=== PATIENT | female | born 1995 | race Caucasian/White ===

== ENCOUNTER 2018-01-22 12:05 | Inpatient (IN) | payer MEDICAID ==
[2018-01-22 12:40] LABS: ADD MAN DIFF? NO
[2018-01-22 12:44] LABS: WHITE BLOOD COUNT 8.1 10^3/ul (4.8-10.8)
[2018-01-22 12:44] LABS: BASOPHILS % 0.2 % (0.0-2.0); EOSINOPHILS # 0.1 10^3/ul (0.0-0.5); EOSINOPHILS % 1.1 % (0.0-7.0); HEMATOCRIT 37.6 % (37.0-47.0); HEMOGLOBIN 12.5 g/dl (12.0-16.0); LYMPHOCYTES # 2.3 10^3/ul (0.8-2.9); LYMPHOCYTES % 28.6 % (15.0-51.0); MEAN CORPUSCULAR HEMOGLOBIN 30.1 pg (29.0-33.0); MEAN CORPUSCULAR HGB CONC 33.2 g/dl (32.0-37.0); MEAN CORPUSCULAR VOLUME 90.6 fl (82.0-101.0); MEAN PLATELET VOLUME 10.4 fl (7.4-10.4); MONOCYTE # 0.7 10^3/ul (0.3-0.9); MONOCYTES % 8.6 % (0.0-11.0); NEUTROPHIL # 4.9 10^3/ul (1.6-7.5); NEUTROPHILS % 60.8 % (39.0-77.0); PLATELET COUNT 248 10^3/UL (140-415); RED BLOOD COUNT 4.15 10^6/ul (4.20-5.40); RED CELL DISTRIBUTION WIDTH 15.5 % (11.5-14.5)
[2018-01-22] MEDS ORDERED: LACTATED RINGER'S 1,000 ML IV (13:00)
[2018-01-22 13:03] LABS: ALANINE AMINOTRANSFERASE 215 IU/L (13-69); ALBUMIN 3.5 g/dl (3.3-4.9); ALKALINE PHOSPHATASE 245 IU/L (42-121); ANION GAP 14 (8-16); ASPARTATE AMINO TRANSFERASE 86 IU/L (15-46); BILIRUBIN,INDIRECT 0.1 mg/dl (0-1.1); BILIRUBIN,TOTAL 0.1 mg/dl (0.2-1.3); BLOOD UREA NITROGEN 4 mg/dl (7-20); CALCIUM 9.3 mg/dl (8.4-10.2); CARBON DIOXIDE 25 mmol/L (21-31); CHLORIDE 106 mmol/L (97-110); CREATININE 0.54 mg/dl (0.44-1.00); GLUCOSE 71 mg/dl (70-220); POTASSIUM 3.9 mmol/L (3.5-5.1); SODIUM 141 mmol/L (135-144)
[2018-01-22] MEDS ORDERED: METHYLERGONOVINE 0.2 MG INJ IM (16:30)
[2018-01-22] MEDS ORDERED: LIDOCAINE 1% (MPF) 30 ML INJ INJ (16:30)
[2018-01-22] MEDS ORDERED: MISOPROSTOL 200 MCG TAB PR (16:30)
[2018-01-22] MEDS ORDERED: OXYTOCIN 30 UNITS/LR 500 ML IV ×3 (16:30)
[2018-01-22] MEDS ORDERED: CARBOPROST 250 MCG INJ IM (16:30)
[2018-01-22] MEDS ORDERED: BUTORPHANOL 2 MG INJ IV (16:30)
[2018-01-22] MEDS ORDERED: IBUPROFEN 600 MG TAB PO (16:30)
[2018-01-22] MEDS: LACTATED RINGER'S 1,000 ML IV (18:02)
[2018-01-22] MEDS: AMPICILLIN 2 GM/NS (PMX) 100 ML IV (18:11)
[2018-01-22] MEDS: BETAMET NA PHOS/AC(6 MG/ML) 5ML INJ IM (18:12)
[2018-01-22 18:18] LABS: ADD MAN DIFF? NO
[2018-01-22 18:21] LABS: WHITE BLOOD COUNT 9.7 10^3/ul (4.8-10.8)
[2018-01-22 18:21] LABS: BASOPHILS % 0.3 % (0.0-2.0); EOSINOPHILS % 0.4 % (0.0-7.0); HEMATOCRIT 38.5 % (37.0-47.0); LYMPHOCYTES # 2.6 10^3/ul (0.8-2.9); LYMPHOCYTES % 26.8 % (15.0-51.0); MEAN CORPUSCULAR HEMOGLOBIN 30.2 pg (29.0-33.0); MEAN CORPUSCULAR HGB CONC 33.8 g/dl (32.0-37.0); MEAN CORPUSCULAR VOLUME 89.5 fl (82.0-101.0); MEAN PLATELET VOLUME 10.2 fl (7.4-10.4); MONOCYTE # 0.6 10^3/ul (0.3-0.9); MONOCYTES % 6.1 % (0.0-11.0); NEUTROPHIL # 6.4 10^3/ul (1.6-7.5); PLATELET COUNT 238 10^3/UL (140-415); RED CELL DISTRIBUTION WIDTH 15.4 % (11.5-14.5)
[2018-01-22 18:39] LABS: INR 0.97
[2018-01-22 18:40] LABS: PARTIAL THROMBOPLASTIN TIME 28.1 Sec (25.0-35.0)
[2018-01-22 19:14] LABS: HEPATITIS B SURFACE ANTIGEN NEGATIVE (NEGATIVE)
[2018-01-22] MEDS: URSODIOL 300 MG CAP PO (20:55)
[2018-01-22] MEDS: AMPICILLIN 1 GM/NS (PMX) 50 ML IV (22:09)
[2018-01-23 02:30] LABS: AMPHETAMINE/METHAMPHETAMINE Negative (NEGATIVE); BARBITURATES Negative (NEGATIVE); BENZODIAZEPINES Negative (NEGATIVE); CANNABINOIDS Negative (NEGATIVE); COCAINE Negative (NEGATIVE); OPIATES Negative (NEGATIVE)
[2018-01-23] MEDS: AMPICILLIN 1 GM/NS (PMX) 50 ML IV ×6 (03:22→18:46)
[2018-01-23] MEDS: LACTATED RINGER'S 1,000 ML IV ×3 (05:29→17:31)
[2018-01-23] MEDS: FERROUS SULFATE (EC) 325 MG TAB PO (09:30)
[2018-01-23] MEDS: URSODIOL 300 MG CAP PO ×2 (09:30→15:35)
[2018-01-23] MEDS: ACETAMINOPHEN 325 MG TAB PO (09:31)
[2018-01-23] MEDS: PRENATAL VITAMIN PO (09:48)
[2018-01-23 14:53] LABS: RAPID PLASMA REAGIN NONREACTIVE (NR)
[2018-01-23] MEDS: BETAMET NA PHOS/AC(6 MG/ML) 5ML INJ IM (17:31)
== END 2018-01-23 20:55 | disposition home or self-care (01) | DRG 781 ==
LOC: OBT 12:05 → L-D 12:07 → OBT 14:47 → L-D 14:40
DX: O26.613 Liver and biliary tract disorders in pregnancy, third trimester (principal); K83.1 Obstruction of bile duct; Z3A.33 33 weeks gestation of pregnancy
CPT/HCPCS: 36415; 76815; 76818; 80053; 80307; 83789; 85025; 85610; 85730; 86592; 86900; 86901; 87340; 93970

== ENCOUNTER 2018-01-26 15:23 | Outpatient (CLI) | payer MEDICAID | END 2018-01-26 17:01 | disposition home or self-care (01) | LOC: OBT 15:23 → L-D 15:25 → OBT 17:01 | DX: O26.893 Other specified pregnancy related conditions, third trimester (principal); L29.9 Pruritus, unspecified; Z3A.33 33 weeks gestation of pregnancy | CPT/HCPCS: 76818 ==